=== PATIENT | female | born 1965 | race Caucasian/White ===

== ENCOUNTER → 2023-05-12 10:51 | Outpatient (BNVA) | payer MEDICARE, MEDICAID, SELFPAY | PROVIDERS: Visit Provider Physical Therapy Assistant | DX: K44.9 Diaphragmatic hernia without obstruction or gangrene (principal); K25.9 Gastric ulcer, unspecified as acute or chronic, without hemorrhage or perforation; Z89.612 Acquired absence of left leg above knee | CPT/HCPCS: 99203 ==

== ENCOUNTER 2023-05-20 06:55 | Day surgery (SDC) | payer MEDICARE, MEDICAID, SELFPAY ==
[2023-05-20] MEDS: Lactated Ringers 1,000 ML 80 ML IV (07:50)
--- NOTE | 2023-05-20 08:13 | ANES.PREOP_ITS ---
General Info Date of Service Date Performed: 05/20/23 Height: 5 ft 4 in Weight: 63.503 kg Body Mass Index (BMI): 24.0 Surgical Procedure: Operation Date: 05/20/23 08:20 Proposed Procedure Side Surgeon p Gastroscopy Ray Munoz MD Meds Allergies and Home Medications Allergies Allergy/AdvReac Type Severity Reaction Status Date / Time Penicillins Allergy Unknown Verified 05/19/23 14:15 Home Medication Medication Instructions Recorded aripiprazole 10 mg tablet 10 mg PO DAILY 04/28/23 benzocaine 15 mg-menthol 2.6 mg 1 mandy mucous membrane Q2H PRN 04/28/23 lozenges (Cepacol Sore Throat (benzocaine-menthol)) folic acid 1 mg tablet 1 mg PO DAILY 04/28/23 gabapentin 100 mg capsule 100 mg PO QHS 04/28/23 insulin glargine 100 unit/mL (3 7 unit subcut DAILY 04/28/23 mL) subcutaneous pen (Lantus Solostar U-100 Insulin) lorazepam 0.5 mg tablet 0.5 mg PO .q6hr PRN 04/28/23 melatonin 3 mg capsule 6 mg PO HS PRN 04/28/23 multivitamin with minerals-folic 1 tab PO DAILY 04/28/23 acid 400 mcg tablet, extended release pantoprazole 40 mg tablet,delayed 40 mg PO DAILY 04/28/23 release polyethylene glycol 3350 17 17 g PO DAILY PRN 04/28/23 gram/dose oral powder sucralfate 1 gram tablet 1 g PO QID 04/28/23 Current Visit Medications: Current Medications Generic Name Dose Route Start Last Admin Trade Name Giovana PRN Reason Stop Dose Admin Ringer's Solution 1,000 mls @ 80 mls/hr 05/20/23 06:00 IV 06/18/23 23:59 INFUSION ANJALI IV Miscellaneous Supplies 1 each 05/20/23 06:00 Iv Access IV 06/18/23 23:59 DIRECTED ANJALI Sodium Chloride 0 ml 05/20/23 06:00 Normal Saline Flush 10 Ml Syr IV 06/18/23 23:59 PRN PRN Sodium Chloride 0 ml 05/20/23 06:00 Normal Saline 10 Ml Vial IJ 06/18/23 23:59 DIRECTED PRN Sterile Water 0 ml 05/20/23 06:00 Water,Injection,Sterile 10 Ml Vial IJ 06/18/23 23:59 DIRECTED PRN PFS Active Problems Active Problems: Problem Status Onset Code Gastric ulcer K25.9 History of left lower extremity amputation Z89.612 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 transfers herself Disruption of external operation (surgical) wound Dysphagia, oropharyngeal phase Moderate protein-calorie malnutrition Need for assistance with personal care PTSD (post-traumatic stress disorder) Per [facility][1] does not like male providers Surgical History Surgical History (Updated 05/19/23 @ 14:14 by Gustavo Carrillo) Hx of hysterectomy Tobacco Smoking/Tobacco Use Status: Never Alcohol Alcohol Intake: never Substance Use Substance use: Never Substance use type: does not use Vital Signs and Lab Results Point of Care Results Point of Care Results: Finger Stick Blood Glucose 109 05/20/23 07:13 Lab Results Blood Type / Crossmatch: No Data to Display Complete Blood Count: No Data to Display Complete Metabolic Panel: No Data to Display Liver Function Panel: No Data to Display Coagulation Panel: 2 No Data to Display Cardiac Panel: No Data to Display Arterial Blood Gas: No Data to Display Venous Blood Gas: No Data to Display Pancreas Panel: No Data to Display Thyroid Panel: No Data to Display Infectious Disease: No Data to Display Blood Cultures: No Data to Display Toxicology Panel: No Data to Display Anesthesia Assessment and Plan Anesthesia History Personal History: No History of Anesthesia Complications Family History: Family History Unknown Exercise Tolerance Exercise Tolerance: Metabolic Equivalents>4 Pertinent Negatives Pertinent Negatives: No Major Cardiovascular Symptoms or Complaints and No Major Pulmonary Symptoms or Complaints Cardiac & Pulmonary Exam Cardiac Exam: Normal S1/S2 Heart Sounds Pulmonary Exam: Clear Bilateral Breath Sounds Implantable Cardiac Device Does patient have a Pacemaker or an ICD?: No Airway Exam Known Difficult Airway: No Mallampati Class: 2 Mouth Opening: Normal (> 3cm) Thyromental Distance: Greater than 3 cm Neck Range of Motion: Full ROM Neck Circumference: Normal Teeth Condition: Normal Dentition ASA Classification ASA Score: ASA 2 Emergency Case?: No NPO Status NPO Status: NPO Clears >2 hours, Solids >8 hours Anesthesia Plan Resuscitation Status: Full Code Anesthesia Technique: General Anesthesia Airway Planned: Natural Airway Monitors Used: Standard Monitors
[2023-05-20 08:24] VITALS: BMI 24.0
--- NOTE | 2023-05-20 08:25 | W.PM.OP ---
Date of service: 05/20/23 Time of Service: 09:00 Operative Note Operative Note Refer to Anesthesia Record Procedure Description: Procedures performed: 1.? Esophagogastroduodenoscopy with cold forceps biopsies Preoperative diagnosis: Paraesophageal hernia, gastric ulcer Postoperative diagnosis: Moderate?size(2-3 cm) type I sliding hiatal hernia, Rodriguez's esophagus Surgeon: Ricky Munoz Anesthesia: Rola Indication for procedure: 57-year-old woman had a stomach ulcer found after being found to be severely anemic. She is a surveillance exam following treatment/therapy. She has had many years of dysphagia and has had multiple upper endoscopies done for foreign esophageal bodies (food boluses). Findings: - D3, D2 and D1 - normal - no inflammation or ulcers - Pylorus - patent.? No bile reflux visualized during procedure. - Antrum - normal?appearance, no ulcers or erosions- biopsies taken to rule out occult H. pylori - Stomach Body - normal appearance.? - Fundus -? Normal.? - Hiatus - Retroflexion showed a moderate type I sliding hiatal hernia (2-3 cm slide). It does not appear to be a paraesophageal type as previously seen 6 months ago. - Esophagus - distal esophagus does not appear inflamed actively. There is a long strip that appears to be Rodriguez's about 2-3 cm long. Biopsies taken of this strip. No esophagitis or erosions. No obvious stricture. The hiatal hernia slides about 2 cm, perhaps 3 today. I do not appreciate a paraesophageal component. - Cords/hypopharynx - Normal OVERALL - ulcer has healed, Rodriguez's esophagus is present in setting of hiatal hernia Surveillance/follow-up recommendations: Surveillance EGD unlikely to be necessary. Patient is following up for antireflux surgery discussion/planning Complications: None Blood loss: Minimal Specimens:? YES Procedure in detail: Written consent was obtained from the patient who was in agreement with the risks, benefits and indications of the procedure.? We went to the endoscopy suite and laid the patient in left lateral decubitus position.? Anesthesia was administered which was tolerated well.? A timeout was performed and when we are all in agreement we began the procedure. A well?lubricated endoscope was advanced without difficulty down the esophagus, into the stomach, through a patent pylorus and into the duodenum.? It was then slowly pulled back with findings noted above. The scope was then removed and the patient tolerated the procedure well.
[2023-05-20 08:38] VITALS: BP 155/77; PULSE 72; RESP 16; TEMP 36.6; O2SAT 98
--- NOTE | 2023-05-20 08:49 | STOM_PTH ---
PATIENT: Diann Owen LOC: [facility] U#:[id number] AGE/SX: 57/F ROOM: RE05/20/[address]: Ray Munoz : 1965 BED: DIS: 05/20/2023 SPEC #: [id number] RECD: 05/20/23 12:11 STATUS: [facility] #: [id number] SAMAN: 05/20/23 08:[address]: Ray Munoz DEPT: Surgical Specimen RECD BY: Mandi Reinoso ENTERED: 05/20/23 12:13 SP TYPE: STOMACH OTHR DR: Liv Richardson Tissues: 1 - STOMACH BIOPSY 2 - ESOPHAGUS BIOPSY Procedures: GROSS AND MICRO LEVEL 4 Comments: [id number]
[2023-05-20 09:00] VITALS: BP 137/79; PULSE 70; RESP 18; TEMP 36.6; O2SAT 98
--- NOTE | 2023-05-20 09:11 | W.ANESPOSTOP ---
Postoperative Evaluation Date, Time and Location Date Performed: 05/20/23 Time Performed: 09:11 Patient Location: Day Surgery Unit Vital Signs Most Recent Imported Vital Signs: Most Recent Vital Signs Temp Pulse Resp BP Pulse Ox 36.6 C 70 18 137/79 98 05/20/23 09:00 05/20/23 09:00 05/20/23 09:00 05/20/23 09:00 05/20/23 09:00 Pain Score Most Recent Pain Score: Most Recent Pain Score Pain Level 0 05/20/23 09:00 Assessment Mental Status: Awake (Alert & Oriented to Patient Baseline) Airway and Respiratory Function: Patent airway with normal (patient baseline) respiratory exam Cardiovascular Function: Hemodynamically Stable Hydration Status: Adequately Hydrated Nausea & Vomiting: No Nausea or Vomiting Pain: Pt. Denies Any Pain Peripheral Nerve Block: Patient did not receive a nerve block
[2023-05-20 09:32] VITALS: BP 101/81; PULSE 66; RESP 16; TEMP 36.3; O2SAT 98
--- NOTE | 2023-05-20 09:32 | W.PM.DSUDISC ---
Date of service: 05/20/23 Time of Service: 09:32 Discharge Plan Disposition Patient Disposition: Home Condition: Good Discharge Details Attending Provider: Ray Munoz Primary Care Provider: Liv Richardson Home Meds and New Rx's Prescriptions: No Action aripiprazole 10 mg tablet 10 mg PO DAILY Cepacol Sore Throat (jong-men) 15-2.6 mg lozenge 1 mandy mucous membrane Q2H PRN folic acid 1 mg tablet 1 mg PO DAILY gabapentin 100 mg capsule 100 mg PO QHS insulin glargine [Lantus Solostar U-100 Insulin] 100 unit/mL (3 mL) insulin pen 7 unit subcut DAILY lorazepam 0.5 mg tablet 0.5 mg PO .q6hr PRN melatonin 3 mg capsule 6 mg PO HS PRN multivit with min-folic acid 400 mcg tablet extended release 1 tab PO DAILY pantoprazole 40 mg tablet,delayed release (DR/EC) 40 mg PO DAILY polyethylene glycol 3350 17 gram/dose powder 17 g PO DAILY PRN sucralfate 1 gram tablet 1 g PO QID Discharge Instructions Additional Instructions: FINDINGS: Ulcer has healed Activity:: Activity as Tolerated Diet:: As Tolerated Discharge Orders Discharge Orders: Discharge Order (Routine); Ordered 05/20/23 Ordered By: Ray Munoz
== END 2023-05-20 10:12 | disposition home or self-care (01) ==
PROVIDERS: PCP Legal Medicine; Visit Provider Student in an Organized Health Care Education/Training Program
PROC: 0DJ68ZZ Inspection of Stomach, Via Natural or Artificial Opening Endoscopic (ICD-10-PCS; CPT 43235; principal; 2023-05-20 08:15)
DX: K22.70 Barrett's esophagus without dysplasia (principal); K44.9 Diaphragmatic hernia without obstruction or gangrene; D64.9 Anemia, unspecified; R13.10 Dysphagia, unspecified; Z87.11 Personal history of peptic ulcer disease; K22.89 Other specified disease of esophagus; K31.89 Other diseases of stomach and duodenum
CPT/HCPCS: 43239; 88305; J2001; J2704

== ENCOUNTER 2023-08-02 12:59 | Outpatient (REF) | payer MEDICARE, MEDICAID, SELFPAY | END 2023-08-02 13:00 | disposition home or self-care (01) | LOC: SUO 12:59 | PROVIDERS: PCP Legal Medicine; Referring Provider Legal Medicine; Visit Provider Student in an Organized Health Care Education/Training Program | DX: Z89.612 Acquired absence of left leg above knee (principal) | CPT/HCPCS: 87077; 87070; 87186; 87205 ==

== ENCOUNTER → 2023-08-02 12:59 | Outpatient (BNVA) | payer MEDICARE, MEDICAID, SELFPAY | PROVIDERS: PCP Legal Medicine; Referring Provider Legal Medicine; Visit Provider Student in an Organized Health Care Education/Training Program | DX: K44.9 Diaphragmatic hernia without obstruction or gangrene (principal); Z89.612 Acquired absence of left leg above knee | CPT/HCPCS: 87077; 99215; 87070; 87186; 87205 ==